=== PATIENT | male | born 1960 | race Caucasian/White ===

== ENCOUNTER 2021-03-08 22:52 | Emergency (ER) | payer MEDICARE ==
[~2021-03-08 22:52] MED LIST: ALEVE220 MG PO; BUSPIRONE HCL10 MG PO; FOLIC ACID1 MG PO; IMODIUM2 MG PO; LIPITOR 10MG TA10 MG PO; PERCOCET 5-3251 EACH PO; PRINIVIL20 MG PO; PROTONIX 40MG T40 MG PO; TOPROL XL 25MG25 MG PO; VITAMIN D350 MC3 PO; XALATAN2.5 ML OU; ZOFRAN4 MG PO
[2021-03-09 00:10] LABS: BASOPHIL 0.3 % (0-2); EOSINOPHIL 0.1 % (0-5); HCT 47.8 % (42.0-52.0); HGB 16.8 g/dl (13.2-18.0); MCH 32.2 pg (25.0-31.0); MCHC 35.1 g/dL (32.0-36.0); MCV 91.7 fL (78.0-100.0); MONOCYTE 6.2 % (0-12); MPV 9.7 fL (6.0-9.5); NRBC 0; PLT 357 K/uL (150-400); RBC 5.21 M/uL (4.70-6.00); RDW 12.1 % (11.5-14.0); WBC 11.5 K/uL (4.0-10.5)
[2021-03-09 00:44] LABS: ALBUMIN 3.7 g/dL (3.4-5.0); BILIRUBIN - TOTAL 0.7 mg/dL (0.2-1.0); CREATININE 0.93 mg/dL (0.67-1.17); GLOBULIN (CALCULATION) 4.1 g/dL; POTASSIUM 4.2 mmol/L (3.5-5.1); TOTAL PROTEIN 7.8 g/dL (6.4-8.2)
[2021-03-09 02:37] LABS: BILIRUBIN 1+ mg/dL (NEGATIVE); BLOOD 3+ Ery/uL (NEGATIVE); CLARITY CLEAR (CLEAR); COLOR YELLOW (YELLOW); GLUCOSE (U) NORMAL (NORMAL); LEUKOCYTES NEGATIVE Leu/uL (NEGATIVE); NITRITE NEGATIVE (NEGATIVE); PROTEIN TRACE (LOW) mg/dL (NEGATIVE); SPECIFIC GRAVITY >=1.030 (1.001-1.030); UROBILINOGEN 0.2 mg/dL (0.2-1.0); pH 5.5 (5.0-9.0)
[2021-03-09 02:43] LABS: URINARY WBC RARE
[2021-03-09 02:44] LABS: CALCIUM OXALATE CRYSTALS MODERATE; URINARY RBC 20-50
[2021-03-09] MEDS ORDERED: ETODOLAC300 MG PO (03:10)
[2021-03-09] MEDS ORDERED: ONDANSETRON ODT4 MG SL (03:10)
[2021-03-09] MEDS ORDERED: DILAUDID2 MG PO (03:10)
[2021-03-09] MEDS ORDERED: FLOMAX0.4 MG PO (03:10)
[2021-03-11] MEDS ORDERED: DICLOFENAC SODI75 MG PO (10:27)
== END 2021-03-09 03:20 | disposition home or self-care (01) ==
LOC: FER 22:52
PROVIDERS: Emergency Medicine Emergency Medical Services
DX: N13.2 Hydronephrosis with renal and ureteral calculous obstruction (principal); I10 Essential (primary) hypertension; F17.210 Nicotine dependence, cigarettes, uncomplicated; Z88.5 Allergy status to narcotic agent; Z79.899 Other long term (current) drug therapy
CPT/HCPCS: 36415; 80053; 81001; 85025; J1170; J1885; J2405; J7030

== ENCOUNTER 2021-03-15 08:19 | Day surgery (SDC) | payer MEDICARE ==
[~2021-03-15] VITALS: Ht 178 cm; Wt 86.2 kg
[~2021-03-15 08:19] MED LIST changes: +DICLOFENAC SODI75 MG PO; +DILAUDID2 MG PO; +ETODOLAC300 MG PO; +FLOMAX0.4 MG PO; +ONDANSETRON ODT4 MG SL
[2021-03-15 09:31] LABS: INR 1.03 (0.9-1.2); PROTHROMBIN TIME 12.9 SECONDS (11.8-13.4); PTT 33.1 SECONDS (24.4-34.7)
[2021-03-15] MEDS ORDERED: PERCOCET 5-3251 EACH PO (10:44)
--- NOTE | 2021-03-15 15:39 | NUR ---
MET WITH PT. HE REQUESTS OUTPT THERAPY AT [facility]. FIRST APPT. IS 03/17/21 @ 2:45 [facility] TO DELIVER A ROLLING WALKER UPON DISCHARGE. PT. SIGNED CHOICE FORM.
[2021-03-16 05:17] LABS: BASOPHIL 0.2 % (0-2); EOSINOPHIL 0.2 % (0-5); HCT 37.5 % (42.0-52.0); LYMPHOCYTE 13.4 % (15-48); MCH 32.9 pg (25.0-31.0); MCHC 34.7 g/dL (32.0-36.0); MCV 94.9 fL (78.0-100.0); MPV 9.3 fL (6.0-9.5); NEUTROPHIL 75.9 % (41-80); NRBC 0; PLT 246 K/uL (150-400); RBC 3.95 M/uL (4.70-6.00); RDW 11.9 % (11.5-14.0); WBC 9.8 K/uL (4.0-10.5)
[2021-03-16 05:42] LABS: BUN/CREAT RATIO (CALC) 15.7 RATIO; CREATININE 0.83 mg/dL (0.67-1.17); POTASSIUM 4.3 mmol/L (3.5-5.1)
[2021-03-16] MEDS ORDERED: ULTRA-LIGHT RO1 EACH XX (12:07)
[2021-03-16] MEDS ORDERED: FEOSOL325 MG PO (12:07)
[2021-03-16] MEDS ORDERED: 3IN1 COMMODE XX (12:07)
[2021-03-16] MEDS ORDERED: ASPIRIN81 MG PO (12:07)
== END 2021-03-16 12:54 | disposition home or self-care (01) ==
LOC: FAS 08:19 → FOR 13:15 → FAS 13:15
PROVIDERS: Orthopaedic Surgery
DX: M87.051 Idiopathic aseptic necrosis of right femur (principal); M16.11 Unilateral primary osteoarthritis, right hip; S72.001A Fracture of unspecified part of neck of right femur, initial encounter for closed fracture; E78.5 Hyperlipidemia, unspecified; K74.60 Unspecified cirrhosis of liver; I95.81 Postprocedural hypotension; R11.0 Nausea; G47.30 Sleep apnea, unspecified; K21.9 Gastro-esophageal reflux disease without esophagitis; F41.9 Anxiety disorder, unspecified; F17.210 Nicotine dependence, cigarettes, uncomplicated; Z88.5 Allergy status to narcotic agent; Z79.891 Long term (current) use of opiate analgesic; Z79.899 Other long term (current) drug therapy; X58.XXXA Exposure to other specified factors, initial encounter
CPT/HCPCS: 36415; 71045; 73501; 76000; 80048; 85025; 85610; 85730; 86850; 86900; 86901; 93005; 94010; 97110; 97162; 97166; 97530-GP; 97535; C1776; J0171; J0697; J1100; J1170; J1885; J2250; J2370; J2405; J2704; J2795; J3010; J7120